=== PATIENT | male | born 1995 | race Caucasian/White ===

== ENCOUNTER 2018-08-14 07:29 | Emergency (ER) | payer SELFPAY, MEDICAID ==
[2018-08-14] MEDS: NALOXONE 2 MG SYG IV ×2 (07:47→09:40)
[2018-08-14] MEDS: FLUMAZENIL 0.5 MG INJ IV (10:29)
[2018-08-14] MEDS: NALOXONE (0.4 MG/ML) INJ IV (10:30)
== END 2018-08-14 11:09 | disposition home or self-care (01) ==
LOC: E/R 07:29
DX: T40.1X4A Poisoning by heroin, undetermined, initial encounter (principal); R40.2132 Coma scale, eyes open, to sound, at arrival to emergency department; R40.2242 Coma scale, best verbal response, confused conversation, at arrival to emergency department; R40.2362 Coma scale, best motor response, obeys commands, at arrival to emergency department; F17.210 Nicotine dependence, cigarettes, uncomplicated
CPT/HCPCS: 96374; 96375; 96376; 99284-25

== ENCOUNTER 2019-01-30 00:47 | Emergency (ER) | payer MEDICAID ==
[2019-01-30] MEDS: LEVETIRACETAM 1000 MG (PMX) 100 ML IVPB (01:46)
== END 2019-01-30 03:19 | disposition home or self-care (01) ==
LOC: E/R 00:47
DX: R56.9 Unspecified convulsions (principal); F17.210 Nicotine dependence, cigarettes, uncomplicated
CPT/HCPCS: 82962; 93005; 96374; 99284-25

== ENCOUNTER 2019-02-02 10:15 | Emergency (ER) | payer MEDICAID ==
[2019-02-02] MEDS: LORAZEPAM 2 MG INJ IV (10:53)
[2019-02-02 11:00] LABS: ADD MAN DIFF? NO
[2019-02-02 11:01] LABS: WHITE BLOOD COUNT 5.2 10^3/ul (4.8-10.8)
[2019-02-02 11:01] LABS: BASOPHIL # 0.1 10^3/ul (0.0-0.1); EOSINOPHILS # 0.3 10^3/ul (0.0-0.5); EOSINOPHILS % 5.4 % (0.0-7.0); HEMOGLOBIN 15.2 g/dl (14.0-18.0); LYMPHOCYTES # 1.8 10^3/ul (0.8-2.9); LYMPHOCYTES % 34.4 % (15.0-51.0); MEAN CORPUSCULAR HEMOGLOBIN 32.8 pg (29.0-33.0); MEAN CORPUSCULAR HGB CONC 34.5 g/dl (32.0-37.0); MEAN PLATELET VOLUME 9.2 fl (7.4-10.4); MONOCYTE # 0.4 10^3/ul (0.3-0.9); MONOCYTES % 7.3 % (0.0-11.0); NEUTROPHIL # 2.7 10^3/ul (1.6-7.5); NEUTROPHILS % 51.5 % (39.0-77.0); PLATELET COUNT 182 10^3/UL (140-415); RED BLOOD COUNT 4.63 10^6/ul (4.70-6.10); RED CELL DISTRIBUTION WIDTH 11.8 % (11.5-14.5)
[2019-02-02 11:23] LABS: ANION GAP 5 (5-13); BLOOD UREA NITROGEN 10 mg/dl (7-20); CALCIUM 9.1 mg/dl (8.4-10.2); CARBON DIOXIDE 28 mmol/L (21-31); CHLORIDE 105 mmol/L (97-110); CREATININE 0.68 mg/dl (0.61-1.24); Estimated GFR > 60 mL/min (>60); GLUCOSE 108 mg/dl (70-220); SODIUM 138 mmol/L (135-144)
== END 2019-02-02 13:17 | disposition home or self-care (01) ==
LOC: E/R 10:15
DX: R56.9 Unspecified convulsions (principal); R40.2142 Coma scale, eyes open, spontaneous, at arrival to emergency department; R40.2252 Coma scale, best verbal response, oriented, at arrival to emergency department; R40.2362 Coma scale, best motor response, obeys commands, at arrival to emergency department; Z87.891 Personal history of nicotine dependence
CPT/HCPCS: 36415; 70450; 80048; 85025; 96374; 99285-25